=== PATIENT | female | born 1955 | race Caucasian/White ===

== ENCOUNTER 2017-05-28 13:03 | Emergency (ER) | payer OTHER ==
[~2017-05-28] VITALS: Ht 157.5 cm; Wt 100.0 kg
[~2017-05-28 13:03] MED LIST: BACTDS PO; BENA20TA48 PO; CYCL-319 PO; IBUP-1542 PO; LEVO112T2 PO; METF850T PO; PRAV20TA63 PO; RANI150C11 PO; SUCR1TAB56 PO; TRAM50TA2 PO
[2017-05-28 13:05] VITALS: Ht 157.5 cm; Wt 100.0 kg
--- NOTE | 2017-05-28 13:27 | ERD ---
ER Documentation Chief Complaint Chief Complaint Complains of back pain x 2 months HPI 61y/o female patient with with history of hypothyroidism, type 2 diabetes mellitus and chronic back pain due to scoliosis,presents to the emergency department with her partner c/o left flank pain, that started 2 months ago. pain is dull, rated 8/10, radiated to left abdomen and pelvic area. The symptoms are associated with loose stools. Denies fever, chills, N/V/D. Denies constipation, blood in stools, no weight loss. No recent history of previous episodes. Treatment attempted: None ROS SYSTEMIC symptoms: no fever, chills, no night sweats, no weight loss EYE symptoms: No blurred vision, no eye discharge OTOLARYNGEAL symptoms: No hearing loss. No ear pain, no sore throat CARDIOVASCULAR symptoms: No chest pain or discomfort, no palpitations. PULMONARY symptoms: No dyspnea, no cough, no wheezing. GASTROINTESTINAL symptoms: Left side abdominal pain, no nausea, no vomiting, no diarrhea MUSCULOSKELETAL symptoms: No arthralgias, no muscle aches. NEUROLOGY symptoms: No confusion, no syncope, no numbness or tingling. SKIN no rashes Medications Home Meds Active Scripts Baclofen* (Baclofen*) 10 Mg Tablet, 10 MG PO Q8 for MUSCLE SPASMS, #15 TAB Prov:AMY TAN MD 05/28/17 Hydrocodone/Acetaminophen ([place] 5-325 Tablet) 1 Each Tablet, 1 TAB PO Q8 Y for SEVERE PAIN LEVEL 7-10, #20 TAB Prov:AMY TAN MD 05/28/17 Ibuprofen* (Motrin*) 600 Mg Tab, 600 MG PO Q6H Y for PAIN AND OR ELEVATED TEMP, #30 TAB Prov:VANESSA MOREIRA NP 08/13/15 Cyclobenzaprine Hcl* (Cyclobenzaprine Hcl*) 10 Mg Tablet, 5 MG PO TID, #15 TAB Prov:VANESSA MOREIRA NP 08/13/15 Sulfamethoxazole-Trimethoprim* (Bactrim* DS) 800-160 Mg Tab, 1 TAB PO BID for 5 Days, TAB Prov:VANESSA MOREIRA NP 08/13/15 Reported Medications Tramadol HCl (Tramadol HCl) 50 Mg Tab, 50 MG PO BID, TAB 2/15 Benazepril Hcl* (Benazepril Hcl*) 20 Mg Tablet, 20 MG PO DAILY, TAB 06/25/14 Metformin Hcl* (Metformin Hcl*) 850 Mg Tablet, 850 MG PO WITH BREAKFAST, TAB 06/25/14 Ranitidine Hcl (Ranitidine Hcl) 150 Mg Capsule, 150 MG PO BID, CAP 06/25/14 Sucralfate* (Carafate*) 1 Gm Tab, 1 GM PO TID, TAB 06/25/14 Levothyroxine Sodium* (Synthroid*) 112 Mcg Tablet, 125 MCG PO DAILY 11/23/12 Pravastatin Sodium* (Pravastatin Sodium*) 20 Mg Tablet, 20 MG PO DAILY 12/16/11 Allergies Allergies: Coded Allergies: Cephalexin Monohydrate (Verified Allergy, Unknown, HIVES, 08/21/14) PMhx/Soc History of Surgery: Yes (CERVICAL NECK SX, appendectomy, thyroidectomy) Anesthesia Reaction: No Hx Neurological Disorder: No Hx Respiratory Disorders: No Hx Cardiac Disorders: Yes (HTN) Hx Psychiatric Problems: Yes (DEPRESSION, diabetes, dyslipidemia) Hx Miscellaneous Medical Probl: No Hx Alcohol Use: No Hx Substance Use: Yes (marijuana) Hx Tobacco Use: No Physical Exam Vitals Vital Signs Date Time Temp Pulse Resp B/P Pulse Ox O2 Delivery O2 Flow Rate FiO2 05/28/17 13:05 98.5 96 20 130/76 99 Physical Exam Patient is in no acute distress, vital signs stable. Alert and fully oriented. EYES: PERRLA, EOMI, Sclera and conjunctiva appear normal. EARS: Canals clear, tympanic membranes WNL THROAT: Normal oropharynx. NECK: Supple, No lymphadenopathy. Full ROM without pain or tenderness. HEART: RRR, no rubs, murmurs, clicks or gallops. LUNGS: Clear to auscultation. ABDOMEN: Soft, tenderness to deep palpation on his left abdomen. No peritoneal signs. No CVA tenderness EXTREMITIES: No edema bilaterally. MUSC: Full ROM, no deformity, normal back exam Result Diagram: 05/28/17 1358 05/28/17 1358 Results 24 hrs Laboratory Tests Test 05/28/17 13:58 White Blood Count 7.610^3/ul Red Blood Count 4.0710^6/ul Hemoglobin 10.9g/dl Hematocrit 33.6% Mean Corpuscular Volume 82.6fl Mean Corpuscular Hemoglobin 26.8pg Mean Corpuscular Hemoglobin Concent 32.4g/dl Red Cell Distribution Width 16.1% Platelet Count 86775^3/UL Mean Platelet Volume 9.9fl Neutrophils % 63.0% Lymphocytes % 22.4% Monocytes % 8.6% Eosinophils % 4.5% Basophils % 0.7% Nucleated Red Blood Cells % 0.0/100WBC Neutrophils # 4.810^3/ul Lymphocytes # 1.710^3/ul Monocytes # 0.710^3/ul Eosinophils # 0.310^3/ul Basophils # 0.110^3/ul Nucleated Red Blood Cells # 0.010^3/ul Urine Color YELLOW Urine Clarity CLEAR Urine pH 8.0 Urine Specific [place] 1.011 Urine Ketones NEGATIVEmg/dL Urine Nitrite NEGATIVEmg/dL Urine Bilirubin NEGATIVEmg/dL Urine Urobilinogen NEGATIVEmg/dL Urine Leukocyte Esterase NEGATIVELeu/ul Urine Hemoglobin NEGATIVEmg/dL Urine Glucose 2+mg/dL Urine Total Protein NEGATIVEmg/dl Sodium Level 146mmol/L Potassium Level 3.8mmol/L Chloride Level 107mmol/L Carbon Dioxide Level 24mmol/L Anion Gap 19 Blood Urea Nitrogen 15mg/dl Creatinine 1.06mg/dl Glucose Level 138mg/dl Calcium Level 9.8mg/dl Total Bilirubin 0.4mg/dl Direct Bilirubin 0.00mg/dl Indirect Bilirubin 0.4mg/dl Aspartate Amino Transf (AST/SGOT) 26IU/L Alanine Aminotransferase (ALT/SGPT) 31IU/L Alkaline Phosphatase 78IU/L Total Protein 7.5g/dl Albumin 4.4g/dl Globulin 3.10g/dl Albumin/Globulin Ratio 1.41 Lipase 177U/L Current Medications Medications (Trade) Dose Ordered Sig/Yecenia Route PRN Reason Start Time Stop Time Status Last Admin Dose Admin Ketorolac Tromethamine (Toradol) 30 mg ONCE STAT IM 05/28/17 13:28 05/28/17 13:32 DC 05/28/17 14:01 DIAGNOSTIC IMAGING REPORT Patient: GIOVANNY GERARD : 1955 Age: 61 Sex: F MR #: [id number] DOS: 05/28/17 1328 Ordering MD: AMY TAN MD Location: [facility] Room/Bed: PROCEDURE: CT ABDOMEN AND PELVIS WITHOUT CONTRAST. CLINICAL INDICATION: Left flank pain TECHNIQUE: CT scan of the abdomen and pelvis without contrast was performed on a multidetector high-resolution CT scanner. The patient was scanned without intravenous contrast. Coronal and sagittal reformatted images were obtained from the axial source images. Images were reviewed on a high-resolution PACS workstation. The total exam CTDI equals 21.8 mGy and the total exam DLP equals 1220 mGy-cm. One or more of the following dose reduction techniques were used: Automated exposure control. Adjustment of the mA and/or kV according to patient size. Use of iterative reconstruction technique. DICOM images are available COMPARISON: None FINDINGS: CT abdomen: The lung bases are clear. The heart size is within limits. There is no significant pericardial effusion. Hepatic morphology is within normal limits. No gross contour deforming masses. The gallbladder is within normal limits. No evidence of intrahepatic or extrahepatic biliary dilatation. The spleen and pancreas are within normal limits. Both adrenal glands are within normal limits. Both kidneys are and normal anatomic position. No evidence of obstruction or hydronephrosis. There is a left-sided renal cyst measuring 4.5 cm. No gross renal/ureteric calculi. The visualized GI tract demonstrate normal caliber loops of small and large bowel. No evidence of bowel obstruction. Stool filled loops of large bowel suggestive of constipation. Status post appendectomy. The aorta is tortuous with mild atherosclerotic calcifications. Several shoddy retroperitoneal lymph nodes are noted. CT pelvis: The bladder is within normal limits. The uterus is unremarkable. There is extensive sigmoid diverticulosis without evidence of diverticulitis. No significant free fluid. No significant pelvic lymphadenopathy. The visualized osseous structures demonstrates severe scoliosis and multilevel degenerative disease of the spine. IMPRESSION: 1. No gross renal/ureteric calculi. No evidence of obstruction or hydronephrosis. 4.5 cm left-sided renal cyst. 2. No evidence of bowel obstruction. Extensive sigmoid diverticulosis. Stool filled loops of large bowel suggestive of constipation. Status post appendectomy. 3. Fatty liver. 4. No evidence of free fluid or free air. No gross focal fluid collections. 5. Severe scoliosis and multilevel degenerative disease of the lumbosacral spine. RPTAT: AAPP Physician Brian Date Time Electronically viewed and signed by Maryam Mcbride Physician on 05/28/2017 14:32 JL/ CC: AMY TAN MD Procedures/MDM 61 y/o female patient with history of diabetes and scoliosis, presents to the ED c/o left flank and abdominal pain for 20 days. Vital signs stable, Physical exam unremarkable, no peritoneal signs, no CVA tenderness. Differential diagnosis include but not limited to: Musculoskeletal pain, pyelonephritis, urolithiasis, sciatica, arthritis, degenerative disc disease. Low suspicion for vertebral fracture, cauda equina syndrome, psoas abscess. Pertinent Data: Labs: CBC: normal, CMP: normal kidney and liver function, normal electrolytes. Lipase: normal Radiology: CT Abdomen IMPRESSION: 1. No gross renal/ureteric calculi. No evidence of obstruction or hydronephrosis. 4.5 cm left-sided renal cyst. 2. No evidence of bowel obstruction. Extensive sigmoid diverticulosis. Stool filled loops of large bowel suggestive of constipation. Status post appendectomy. 3. Fatty liver. 4. No evidence of free fluid or free air. No gross focal fluid collections. 5. Severe scoliosis and multilevel degenerative disease of the lumbosacral spine. Physical examination and clinical presentation consistent most likely with acute muscle spasm. During the ED course the patient received treatment with Toradol presenting overall improvement of the symptoms. Results and clinical impression discussed with recent who agrees with management. The patient is stable to be treated outpatient and will be discharged home with a Rx for [place] and baclofen Side effects of prescribed medications (headache, rash, drowsiness, constipation , habituation) were reviewed. Side effects of prescribed muscle relaxants (drowsiness, habituation) were reviewed. Side effects of prescribed NSAID medication (GI distress, edema, bleeding, HTN) were reviewed. If symptoms persist, worsen or new symptoms develop, then patient is instructed to follow-up with the primary care provider. If the patient is unable to see the primary care provider, then return to the ED immediately. Departure Diagnosis: Primary Impression: Acute flank pain Additional Impression: Spasm of back muscles Condition: Stable Patient Instructions: Flank Pain, Uncertain Cause Additional Instructions: Thank you very much for allowing us to participate in your care. Your health and safety is our top priority at [facility]. Have prescriptions filled and follow precisely the directions on the label. Follow-up with primary care provider during the next 4 days and bring all the information and medications prescribed. If illness has not improved in 2 days, then make an appointment with primary care provider. If the provider is unavailable, return to the Emergency Department immediately. AMY TAN MD May 28, 2017 13:27
[2017-05-28] MEDS ORDERED: KETOROLAC 30 MG INJ IM STA (13:28)
[2017-05-28 14:15] LABS: ADD UMIC NO; UR ASCORBIC ACID 40 mg/dL (NEGATIVE); UR BILIRUBIN (Dip) NEGATIVE (NEGATIVE); UR BLOOD (Dip) NEGATIVE (NEGATIVE); UR CLARITY CLEAR (CLEAR); UR COLOR YELLOW (YELLOW); UR GLUCOSE (Dip) 2+ mg/dL (NEGATIVE); UR KETONES (Dip) NEGATIVE (NEGATIVE); UR LEUKOCYTE ESTERASE (Dip) NEGATIVE Leu/ul (NEGATIVE); UR NITRITE (Dip) NEGATIVE (NEGATIVE); UR SPECIFIC GRAVITY (Dip) 1.011 (1.003-1.030); UR TOTAL PROTEIN (Dip) NEGATIVE (NEGATIVE); UR UROBILINOGEN (Dip) NEGATIVE (NEGATIVE)
[2017-05-28 14:17] LABS: BASOPHIL # 0.1 10^3/ul (0.0-0.1); BASOPHILS % 0.7 % (0.0-2.0); EOSINOPHILS # 0.3 10^3/ul (0.0-0.5); EOSINOPHILS % 4.5 % (0.0-7.0); HEMATOCRIT 33.6 % (37.0-47.0); HEMOGLOBIN 10.9 g/dl (12.0-16.0); LYMPHOCYTES # 1.7 10^3/ul (0.8-2.9); LYMPHOCYTES % 22.4 % (15.0-51.0); MEAN CORPUSCULAR HEMOGLOBIN 26.8 pg (29.0-33.0); MEAN CORPUSCULAR HGB CONC 32.4 g/dl (32.0-37.0); MEAN CORPUSCULAR VOLUME 82.6 fl (82.0-101.0); MEAN PLATELET VOLUME 9.9 fl (7.4-10.4); MONOCYTE # 0.7 10^3/ul (0.3-0.9); MONOCYTES % 8.6 % (0.0-11.0); NEUTROPHIL # 4.8 10^3/ul (1.6-7.5); PLATELET COUNT 282 10^3/UL (140-415); RED BLOOD COUNT 4.07 10^6/ul (4.20-5.40); RED CELL DISTRIBUTION WIDTH 16.1 % (11.5-14.5); WHITE BLOOD COUNT 7.6 10^3/ul (4.8-10.8)
--- NOTE | 2017-05-28 14:33 | RADRPT ---
PROCEDURE: CT ABDOMEN AND PELVIS WITHOUT CONTRAST. CLINICAL INDICATION: Left flank pain TECHNIQUE: CT scan of the abdomen and pelvis without contrast was performed on a multidetector hig h-resolution CT scanner. The patient was scanned without intravenous contrast. Coronal and sagittal reformatted images were obtained from the axial source images. Images were reviewed on a high-resol [employer] PACS workstation. The total exam CTDI equals 21.8 mGy and the total exam DLP equals 1220 mGy-c m. One or more of the following dose reduction techniques were used: Automated exposure control. Adjustment of the mA and/or kV according to patient size. Use of iterative reconstruction technique. DICOM images are available COMPARISON: None FINDINGS: CT abdomen: The lung bases are clear. The heart size is within limits. There is no significant pericardial effus ion. Hepatic morphology is within normal limits. No gross contour deforming masses. The gallbladder is wi thin normal limits. No evidence of intrahepatic or extrahepatic biliary dilatation. The spleen and pancreas are within normal limits. Both adrenal glands are within normal limits. Both kidneys are and normal anatomic position. No evidence of obstruction or hydronephrosis. There i s a left-sided renal cyst measuring 4.5 cm. No gross renal/ureteric calculi. The visualized GI tract demonstrate normal caliber loops of small and large bowel. No evidence of rafat wel obstruction. Stool filled loops of large bowel suggestive of constipation. Status post appendect nickolas. The aorta is tortuous with mild atherosclerotic calcifications. Several shoddy retroperitoneal lymph nodes are noted. CT pelvis: The bladder is within normal limits. The uterus is unremarkable. There is extensive sigmoid divertic ulosis without evidence of diverticulitis. No significant free fluid. No significant pelvic lymphade nopathy. The visualized osseous structures demonstrates severe scoliosis and multilevel degenerative disease of the spine. IMPRESSION: 1. No gross renal/ureteric calculi. No evidence of obstruction or hydronephrosis. 4.5 cm left-sided renal cyst. 2. No evidence of bowel obstruction. Extensive sigmoid diverticulosis. Stool filled loops of large b owel suggestive of constipation. Status post appendectomy. 3. Fatty liver. 4. No evidence of free fluid or free air. No gross focal fluid collections. 5. Severe scoliosis and multilevel degenerative disease of the lumbosacral spine. RPTAT: AAPP Maryam Mcbride, Physician Date Time Electronically viewed and signed by Maryam Mcbride Physician on 05/28/2017 14:32 JL/
[2017-05-28 14:48] LABS: ALBUMIN 4.4 g/dl (3.3-4.9); ALBUMIN/GLOBULIN RATIO 1.41; BILIRUBIN,INDIRECT 0.4 mg/dl (0-1.1); BILIRUBIN,TOTAL 0.4 mg/dl (0.2-1.3); CALCIUM 9.8 mg/dl (8.4-10.2); CREATININE 1.06 mg/dl (0.44-1.00); POTASSIUM 3.8 mmol/L (3.5-5.1); TOTAL PROTEIN 7.5 g/dl (6.1-8.1)
[2017-05-28] MEDS ORDERED: BACL10TA PO (15:27)
[2017-05-28] MEDS ORDERED: HYDR-906 PO (15:27)
== END 2017-05-28 15:38 | disposition home or self-care (01) ==
LOC: FTE 13:03
DX: M62.830 Muscle spasm of back (principal); R10.2 Pelvic and perineal pain
CPT/HCPCS: 74176; 80053; 81003; 83690; 85025; 96372; J1885; Z7502

== ENCOUNTER → 2018-03-01 | Outpatient (CLI) | END | disposition home or self-care (01) ==

== ENCOUNTER 2018-06-30 13:43 | Emergency (ER) | payer OTHER ==
[~2018-06-30] VITALS: Ht 172.7 cm; Wt 80.0 kg
[~2018-06-30 13:43] MED LIST changes: +BACL10TA PO; +BENA20TA4 PO; -BENA20TA48 PO; -CYCL-319 PO; +CYCL10TA7 PO; +HYDR-4011 PO; -METF850T PO; +METF850T13 PO
[2018-06-30 13:46] VITALS: BP 135/78; PULSE 63; RESP 18; Ht 172.7 cm; Wt 80.0 kg
[2018-06-30] MEDS ORDERED: ACETAMINOPHEN 325 MG TAB PO ONE (15:00)
[2018-06-30] MEDS ORDERED: BACITRACIN 0.9 GM OINT TOP ONE (15:00)
[2018-06-30] MEDS ORDERED: ACET500C5 PO (17:04)
--- NOTE | 2018-06-30 17:57 | ERD ---
ER Documentation Chief Complaint Chief Complaint pt is bib family with [facility] trip /fall head, shoulder pain 30 min ago , -KO HPI 62-year-old female patient with a past medical history of diabetes, hypertension, hyperlipidemia presents to the ED stating that she was standing on her bed, 2 feet tall and putting up a picture frame and accidentally fell backwards and hit the back of her head, neck, left shoulder region onto the dresser. Denies any loss of consciousness. Reports that she felt slightly dizzy. Reports that she has had a previous neck surgery, laminectomy and spinal fusion several years back, and is concerned about the surgery. Patient reports that he has a slight fever. Denies any chest pain, shortness of breath, nausea, vomiting, diarrhea, neck stiffness. ROS All systems reviewed and are negative except as per history of present illness. Medications Home Meds Active Scripts Acetaminophen* (Tylophen*) 500 Mg Capsule, 1 CAP PO Q6H PRN for PAIN AND OR ELEVATED TEMP, #20 CAP Prov:SHERYL PIMENTEL PA-C 06/30/18 Baclofen* (Baclofen*) 10 Mg Tablet, 10 MG PO Q8 for MUSCLE SPASMS, #15 TAB Prov:AMY TAN MD 05/28/17 Hydrocodone/Acetaminophen ([place] 5-325 Tablet) 1 Each Tablet, 1 TAB PO Q8 PRN for SEVERE PAIN LEVEL 7-10, #20 TAB Prov:AMY TAN MD 05/28/17 Ibuprofen* (Motrin*) 600 Mg Tab, 600 MG PO Q6H PRN for PAIN AND OR ELEVATED TEMP, #30 TAB Prov:VANESSA MOREIRA NP 08/13/15 Cyclobenzaprine Hcl* (Cyclobenzaprine Hcl*) 10 Mg Tablet, 5 MG PO TID, #15 TAB Prov:VANESSA MOREIRA NP 08/13/15 Sulfamethoxazole-Trimethoprim* (Bactrim* DS) 800-160 Mg Tab, 1 TAB PO BID for 5 Days, TAB Prov:VANESSA MOREIRA NP 08/13/15 Reported Medications Tramadol HCl (Tramadol HCl) 50 Mg Tab, 50 MG PO BID, TAB 08/21/14 Benazepril Hcl* (Benazepril Hcl*) 20 Mg Tablet, 20 MG PO DAILY, TAB 06/25/14 Metformin Hcl* (Metformin Hcl*) 850 Mg Tablet, 850 MG PO WITH BREAKFAST, TAB 06/25/14 Ranitidine Hcl (Ranitidine Hcl) 150 Mg Capsule, 150 MG PO BID, CAP 06/25/14 Sucralfate* (Carafate*) 1 Gm Tab, 1 GM PO TID, TAB 06/25/14 Levothyroxine Sodium* (Synthroid*) 112 Mcg Tablet, 125 MCG PO DAILY 11/23/12 Pravastatin Sodium* (Pravastatin Sodium*) 20 Mg Tablet, 20 MG PO DAILY 12/16/11 Allergies Allergies: Coded Allergies: Cephalexin Monohydrate (Verified Allergy, Unknown, HIVES, 06/30/18) PMhx/Soc History of Surgery: Yes (CERVICAL NECK SX, appendectomy, thyroidectomy) Anesthesia Reaction: No Hx Neurological Disorder: No Hx Respiratory Disorders: No Hx Cardiac Disorders: Yes (HTN) Hx Psychiatric Problems: Yes (DEPRESSION, diabetes, dyslipidemia) Hx Miscellaneous Medical Probl: No Hx Alcohol Use: No Hx Substance Use: Yes (marijuana) Hx Tobacco Use: No Smoking Status: Never smoker FmHx Family History: No diabetes, No coronary disease Physical Exam Vitals Vital Signs Date Temp Pulse Resp B/P (MAP) Pulse Ox O2 O2 Flow FiO2 Time Delivery Rate 06/30/18 98.3 63 18 135/78 100 13:46 (97) Physical Exam Const: [id number]-hglvatimo, well-nourished. In no acute distress. Head: Atraumatic, normocephalic. No hematoma. No biggs sign. No raccoon eyes. Eyes: Normal Conjunctiva without injection. No purulent discharge. PERRLA. EOMI ENT: Normal external ear. Ear canal without erythema. Tympanic membrane pearly luz without effusion or bulging. No hemotympanum. Nasal canal clear with normal turbinates. Moist oropharynx without tonsillar exudates. Non-erythematous pharynx. Uvula midline. No drooling. No trismus. Neck: No cervical midline tenderness. Full range of motion. No meningismus. No cervical lymphadenopathy. No JVD. Resp: Clear to auscultation bilaterally. No wheezing, rhonchi, rales, or crackles. No accessory muscle use. No retractions. Cardio: Regular rate and rhythm. No murmurs, rubs or gallops. Abd: Soft, non tender, non distended. Normal bowel sounds. No palpable masses. No rebound tenderness. No guarding. Negative McBurney's Point. Negative Garza's Sign. Skin: Normal skin turgor. No petechiae or rashes Back: No midline tenderness. No CVA tenderness. Ext: No cyanosis, or edema. Distal pulses intact bilaterally. Neur: Awake and alert. Normal gait. Normal coordination. Cranial Nerves II- VII intact. Normal finger to nose. Muscle strength 5/5. Sensation intact. Psych: Normal Mood and Affect Results 24 hrs Current Medications Medications Dose Sig/Yecenia Start Time Status Last (Trade) Ordered Route PRN Stop Time Admin Dose Reason Admin 650 mg ONCE ONCE 06/30/18 DC 06/30/18 Acetaminophen PO 15:00 14:37 (Tylenol 06/30/18 Tab) 15:01 Bacitracin 1 applic ONCE ONCE 06/30/18 DC (Bacitracin TOP 15:00 Oint (Ud)) 06/30/18 15:01 Procedures/MDM 62-year-old female patient with a past medical history of diabetes, hypertension, hyperlipidemia presents to ED complaining of a mechanical fall while she is on her bed, hit her head, neck and upper back. Patient is afebrile and nontoxic-appearing. A CT of the brain, CT of the cervical spine, left shoulder x-ray, right foot and right tib-fib x-ray was ordered to further evaluate patient. She was given Tylenol here in the ED with improvement of her pain. Patient CT shows an incidental finding of hemangioma. Patient was strictly instructed to follow-up with a neurologist. PROCEDURE: CT brain without contrast CLINICAL INDICATION: Fall, posterior head injury TECHNIQUE: CT of the brain without contrast was performed on a multidetector CT scanner, with multiplanar reformats. One or more of the following dose reduction techniques were used: Automated exposure control, adjustment in mA and / or kV according to patient size, use of iterative reconstructive technique. CTDIvol = 39 mGy; DLP = 634 mGy-cm. DICOM images are available. COMPARISON: None available FINDINGS: No acute intracranial hemorrhage is identified. No extra-axial fluid collection is seen. There is a small extra-axial dural-based lesion overlying the posterior frontal lobe measuring up to approximately 1.3 cm with punctate associated calcification, likely a meningioma. There is slight local mass effect without midline shift. There is no hydrocephalus. The ventricles and sulci are unremarkable. The density of the brain is unremarkable. Luz-white junctions are preserved. Calvarium and skull base are intact. Mastoid air cells and imaged paranasal sinuses grossly clear. IMPRESSION: 1. No evidence of acute intracranial pathology. 2. 1.3 cm right frontal extra-axial lesion with calcification, likely meningioma. PROCEDURE: CT Cervical Spine without contrast. CLINICAL INDICATION: Trauma with history of prior surgery TECHNIQUE: A CT of the cervical spine was performed on a GramovoxT 64- slice CT scanner utilizing thin section axial images from the skull base through the thoracic inlet. Sagittal and coronal reformatted images were made. The CTDIvol is 22.24 mGy and the DLP is 518.22 mGycm. DICOM images are available. One or more of the following dose reduction techniques were utilized: 1.) Automated exposure control 2.) Adjustment of the mA +/- kV according to patient's size 3.) Use of iterative reconstruction technique. COMPARISON: [facility] 07/30/2014 FINDINGS: Stable postsurgical changes from anterior cervical discectomy and fusion and posterior fusion at C4/5 -C7. Hardware appears intact. Alignment appears unchanged. No evidence of acute fracture. Grade 1 anterolisthesis at C3-C4, stable compared to prior. No acute appearing malalignment. Straightening of the normal lordosis. Multilevel disc space narrowing, most pronounced at C3-C4, C5-C6, and C7-T1. Small posterior disc osteophyte complexes at C3-C4 results in mild narrowing of the spinal canal. Multilevel uncovertebral spurring and facet arthropathy results in multilevel foraminal stenosis which is moderate to severe bilateral at C3-C4, C4-C5, C5-C6, and severe and bilateral at C6-C7. Moderate degenerative changes of the C1-C2 articulation, which appears similar compared to prior. No prevertebral soft tissue swelling or foreign body. No acute abnormality of the lung apices. Tiny calcified granuloma in the right lung apex (series 3 image 130). IMPRESSION: No acute fracture of the cervical spine detected. Fusion hardware from C5-C7 appears intact. Straightening of the normal lordosis with stable grade 1 anterolisthesis at C3- C4. Moderate to advanced multilevel spondylosis which results in moderate to severe multilevel foraminal narrowing bilaterally, as above. PROCEDURE: XR foot. CLINICAL INDICATION: right foot and carranza pain from fall TECHNIQUE: AP, oblique and lateral views of the right foot were obtained. COMPARISON: [facility] 08/13/2015 FINDINGS: No acute fracture dislocation of the foot. Stable moderate arthrosis and hallux valgus deformity at the first MTP joint. Moderate size calcaneal spurs. Mild to moderate arthrosis in the mid foot. Diffuse osteopenia. Mild lateral soft tissue swelling. IMPRESSION: No acute fracture of the foot detected. Degenerative changes include mild DJD at the first MTP joint with hallux valgus deformity, and moderate size calcaneal spurs. PROCEDURE: XR left shoulder. CLINICAL INDICATION: left scapular pain TECHNIQUE: 3 views of the left shoulder were performed. COMPARISON: [facility] 06/30/2014 FINDINGS: No acute fracture or dislocation. Mild degenerative changes of the glenohumeral and acromioclavicular joints. No focal soft tissue abnormality or foreign body. IMPRESSION: Unremarkable left shoulder. No acute fracture or dislocation of the shoulder. PROCEDURE: XR tibia-fibula. CLINICAL INDICATION: right foot and carranza pain from fall TECHNIQUE: AP and lateral views of the right tibia-fibula were obtained. COMPARISON: [facility] 08/13/2015 FINDINGS: No acute fracture detected. No dislocation. No erosive changes or periostitis. D istal predominant soft tissue edema. No foreign body. IMPRESSION: Moderate soft tissue edema without evidence of acute fracture. Patient is placed in a anjali wrap of right leg and foot. Splint Assessment: Neurovascularly intact pre and post splint placement with good fit. Patient's extremity symptoms have stabilized while they have been evaluated in the department and are appropriate for outpatient follow up. No evidence of fractures, dislocations, compartment syndrome, neurologic injury, vascular injur y, open joint, open fracture, tendon laceration, septic arthritis, osteomyelitis, DVT, foreign body, or other emergent conditions. Low suspicion for intracranial bleed, subarachnoid hemorrhage, meningitis, TIA, stroke, meningitis, skull fracture, subdural hematoma, epidural hematoma, or other emergent conditions. Discharge medications: Tylenol Follow up with primary care physician in 1-2 days. Instructed patient to return to the ED sooner for any worsening symptoms. Patient's questions were answered. Patient is hemodynamically stable. Patient understood and agreed with discharge plan. Patient discharged stable. Disclaimer: Inadvertent spelling and grammatical errors are likely due to EHR/dictation software use and do not reflect on the overall quality of patient care. Also, please note that the electronic time recorded on this note does not necessarily reflect the actual time of the patient encounter. Departure Diagnosis: Primary Impression: Fall Encounter type: initial encounter Qualified Codes: W19.XXXA - Unspecified fall, initial encounter Additional Impressions: Injury of back Encounter type: initial encounter Qualified Codes: S39.92XA - Unspecified injury of lower back, initial encounter Injury of head and neck Encounter type: initial encounter Qualified Codes: S09.90XA - Unspecified injury of head, initial encounter; S19.9XXA - Unspecified injury of neck, initial encounter Leg injury Encounter type: initial encounter Laterality: right Qualified Codes: S89.91XA - Unspecified injury of right lower leg, initial encounter Condition: Stable Patient Instructions: Contusion, Back, HEAD INJURY, No Wake-Up (Adult), Back And Neck Pain, General, Fall Prevention Referrals: [facility] YOU HAVE RECEIVED A MEDICAL SCREENING EXAM AND THE RESULTS INDICATE THAT YOU DO NOT HAVE A CONDITION THAT REQUIRES URGENT TREATMENT IN THE EMERGENCY DEPARTMENT. FURTHER EVALUATION AND TREATMENT OF YOUR CONDITION CAN WAIT UNTIL YOU ARE SEEN IN YOUR DOCTORS OFFICE WITHIN THE NEXT 1-2 DAYS. IT IS YOUR RESPONSIBILITY TO MAKE AN APPOINTMENT FOR FOLOW-UP CARE. IF YOU HAVE A PRIMARY DOCTOR --you should call your primary doctor and schedule an appointment IF YOU DO NOT HAVE A PRIMARY DOCTOR YOU CAN CALL OUR PHYSICIAN REFERRAL HOTLINE AT IF YOU CAN NOT AFFORD TO SEE A PHYSICIAN YOU CAN CHOSE FROM THE FOLLOWING [facility] [address] [facility]. [facility] [address] [facility] [address] [facility] [address] [facility]. [facility] [address] [facility]. [facility]. [address] [facility]. [facility] YOU HAVE RECEIVED A MEDICAL SCREENING EXAM AND THE RESULTS INDICATE THAT YOU DO NOT HAVE A CONDITION THAT REQUIRES URGENT TREATMENT IN THE EMERGENCY DEPARTMENT. FURTHER EVALUATION AND TREATMENT OF YOUR CONDITION CAN WAIT UNTIL YOU ARE SEEN IN YOUR DOCTORS OFFICE WITHIN THE NEXT 1-2 DAYS. IT IS YOUR RESPONSIBILITY TO MAKE AN APPOINTMENT FOR FOLOW-UP CARE. IF YOU HAVE A PRIMARY DOCTOR --you should call your primary doctor and schedule and appointment IF YOU DO NOT HAVE A PRIMARY DOCTOR YOU CAN CALL OUR PHYSICIAN REFERRAL HOTLINE AT . IF YOU CAN NOT AFFORD TO SEE A PHYSICIAN YOU CAN CHOSE FROM THE FOLLOWING [facility] INSTITUTIONS: [facility] [address] [place] [address] [facility] [address] [place], [place] [id number] [place] [address] [address] [place] [address] [facility] URGENT CARE/SPECIALTIES Additional Instructions: Call your primary care doctor TOMORROW for an appointment during the next 2-3 days for management of meningioma and pulmonary calcification.See the doctor sooner or return here if your condition worsens before your appointment time. SHERYL PIMENTEL PA-C Jun 30, 2018 17:57
== END 2018-06-30 17:34 | disposition home or self-care (01) ==
LOC: FTE 13:43
DX: S39.92XA Unspecified injury of lower back, initial encounter (principal); S09.90XA Unspecified injury of head, initial encounter; S19.9XXA Unspecified injury of neck, initial encounter; S89.91XA Unspecified injury of right lower leg, initial encounter; I10 Essential (primary) hypertension; E11.9 Type 2 diabetes mellitus without complications; R51 Headache; W01.198A Fall on same level from slipping, tripping and stumbling with subsequent striking against other object, initial encounter; Z79.84 Long term (current) use of oral hypoglycemic drugs
CPT/HCPCS: 70450; 72125; 73030; 73590; 73630; Z7502; Z7610

== ENCOUNTER → 2018-08-02 | Outpatient (CLI) | payer OTHER ==
[~2018-08-02] MED LIST changes: +ACET500C5 PO
--- NOTE | 2018-08-02 18:17 | HKNOTE ---
DATE OF SERVICE: 08/02/2018 Ms. Byrnes returned today for preoperative evaluation. She has not received medical clearance. Fur thermore, Ms. Byrnes stated that SHE IS ALLERGIC TO METAL. I explained to her that prior to knee re placement, she requires medical clearance and evaluation by an glass cutter to evaluate for metal allerg y since the prosthesis will contain substantial amount of metal. At this time, we will cancel her erazo rgery pending medical clearance and evaluation by an glass cutter. She will be scheduled at a later job e in the future. Dictated By: MILTON HURST MD SS/NTS Conf#: [id number] DID#: [id number]
== END | disposition home or self-care (01) ==
LOC: HKI 14:16
PROVIDERS: ATTEND Orthopaedic Surgery Adult Reconstructive Orthopaedic Surgery
DX: Z01.818 Encounter for other preprocedural examination (principal)
CPT/HCPCS: G0463